=== PATIENT | female | born 1990 | race Caucasian/White ===

== ENCOUNTER 2017-08-14 13:06 | Emergency (ER) | payer OTHER ==
[2017-08-14 13:12] VITALS: RESP 16; TEMP 98.1
[2017-08-14] MEDS ORDERED: IBUPROFEN 600 MG TAB PO ONE ×2 (13:16→13:17)
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
[2017-08-14 14:29] VITALS: BP 119/79; PULSE 86; O2SAT 97
== END 2017-08-14 14:29 | disposition home or self-care (01) ==
DX: S52.124A Nondisplaced fracture of head of right radius, initial encounter for closed fracture (principal); V19.9XXA Pedal cyclist (driver) (passenger) injured in unspecified traffic accident, initial encounter; Y92.410 Unspecified street and highway as the place of occurrence of the external cause; Y99.8 Other external cause status